=== PATIENT | female | born 1930 | race Caucasian/White ===

== ENCOUNTER 2017-01-30 15:05 | Outpatient (CLI) | payer MEDICARE, OTHER | END 2017-01-30 15:06 | disposition home or self-care (01) | DX: R41.2 Retrograde amnesia (principal); E78.2 Mixed hyperlipidemia ==

== ENCOUNTER 2017-01-30 18:39 | Outpatient (CLI) | payer MEDICARE, OTHER ==
[2017-01-30] MEDS ORDERED: IOPAMIDOL-300 100 ML VIAL IVP ONE (19:33)
== END 2017-01-30 18:40 | disposition home or self-care (01) ==
DX: R41.2 Retrograde amnesia (principal); E78.2 Mixed hyperlipidemia
CPT/HCPCS: 70460; 80053; 80061; 82607; 84443; 85651; 86780; Q9967

== ENCOUNTER 2017-05-14 16:28 | Emergency (ER) | payer MEDICARE, OTHER ==
--- NOTE | 2017-05-14 17:09 | ED Physician Documentation ---
PD HPI Fall - Stated complaint Stated Complaint: FALL HEAD INJ - Chief complaint Chief Complaint: Laceration - History obtained from History obtained from: Patient - History of Present Illness Mechanism of injury: Tripped Fall distance: Standing position Where injury occurred: Home Timing - onset: Today Injury(ies) location: Head Pain level max: 3 Pain level now: 0 Quality of pain: Pain Associated symptoms: No: LOC, AMS, Amnesia, Seizures, Ear drainage, Nasal drainage, Neck pain, Weakness, Paresthesias, Dyspnea, Nausea / vomiting, Hematemesis, Abdominal distension Symptoms improve with: Rest Worsens with: Movement Contributing factors: No: Anticoagulated, Intoxicated Recently seen: Not recently seen Review of Systems Constitutional: denies: Fever, Chills Throat: denies: Sore throat Cardiac: denies: Chest pain / pressure Respiratory: denies: Dyspnea, Cough GI: denies: Abdominal Pain, Nausea, Vomiting, Diarrhea Musculoskeletal: denies: Neck pain, Back pain Neurologic: denies: Focal weakness, Numbness, LOC PD PAST MEDICAL HISTORY - Past Medical History Past Medical History: No HEENT: Chronic hearing loss - Social History Does the pt smoke?: No Smoking Status: Never smoker PD ED PE NORMAL - Vitals Vital signs reviewed: Yes - General General: Alert and oriented X 3, No acute distress, Well developed/nourished - HEENT HEENT: PERRL, EOMI, Ears normal, Moist mucous membranes, Pharynx benign, Other ( 3cm, curved laceration to the superior aspect of the forehead, L side. 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 Mild left frontal scalp hematoma and soft tissue swelling or soft tissue gas consistent with laceration.) cervical spine CT Radiology: Prelim report reviewed, EMP read contemporaneously, See rad report ( Diffuse degenerative disc disease most severe at C4-C5, C5-C6 and C6-C7 levels. Diffuse facet arthropathy. No acute fracture. No Prevertebral soft tissue hematoma.) PD MEDICAL DECISION MAKING - ED course Complexity details: reviewed results, re-evaluated patient, considered differential, d/w patient ED course: Patient is an 87-year-old female who presents to the emergency department after a fall today. No acute findings on head CT or cervical spine CT. She does have a forehead laceration and this was repaired by Dr. Irwin. Please see his note for repair details. On evaluation after cleaning the wound, the wound appears to be approximately 4 cm in length. Warnings of infection and instructions on wound care given at bedside. Also counseled on how to minimize scarring. Patient counseled regarding signs and symptoms for which I believe and urgent re-evaluation would be necessary. Patient with good understanding of and agreement to plan and is comfortable going home at this time This document was made in part using voice recognition software. While efforts are made to proofread this document, sound alike and grammatical errors may occur. No evidence of syncope. No evidence of altered mental status. Normal neurological exam. Neck pain resolved on palpation on serial exam. Departure - Departure Disposition: 01 Home, Self Care Clinical Impression: Scalp laceration Qualifiers: Encounter type: initial encounter Qualified Code(s): S01.01XA - Laceration without foreign body of scalp, initial encounter Head injury Qualifiers: Encounter type: initial encounter Qualified Code(s): S09.90XA - Unspecified injury of head, initial encounter Condition: Good Instructions: ED Head Injury Closed, ED Laceration All Follow-Up: Jesus Manjarrez MD [Primary Care Provider] - Within 1 week (suture removal in 7 days ) Comments: Follow up with your doctor in 1 week for suture removal. Your CT scans are normal today. Discharge Date/Time: 05/14/17 20:32
[2017-05-14] MEDS ORDERED: LIDOCAINE 1% 2 ML VIAL ONE (18:43)
--- NOTE | 2017-05-14 19:53 | ED Physician Documentation ---
History of Present Illness - Stated complaint Stated Complaint: FALL HEAD INJ - Chief complaint Chief Complaint: Laceration - History obtained from History obtained from: Patient - History of Present Illness Timing: Today - Additonal information Additional information: fell today lacerating her forehead. Asked by Pollo to suture forehead. Patient appears to be tolerating the laceration well. PD PAST MEDICAL HISTORY - Past Medical History Past Medical History: No HEENT: Chronic hearing loss - Social History Does the pt smoke?: No Smoking Status: Never smoker Results - Vitals Vitals: Vital Signs - 24 hr 05/14/17 16:50 Temperature 35.9 C L Heart Rate 58 L Respiratory 18 Rate O2 Saturation 97 Oxygen O2 Source Room air Procedures - Laceration (location) forehead Length in cm: 4 Wound type: Curved, Flap Neurovascular status: Sensory intact, Motor intact, Vascular intact Anesthesia: Lidocaine 1% Wound Preparation: Hibiclens, Irrigated copiously NS, Wound explored, To the base Skin layer closure: Nylon, Interrupted, Size #-0 - enter number (5-0) Other: Patient tolerated well, No complications, Neurovascular intact Complexity: Simple PD MEDICAL DECISION MAKING - ED course Complexity details: d/w patient ED course: 87 y/o female with forehead laceration sutured. Remainder of visit per Dr. Abad.
--- NOTE | 2017-05-14 20:06 | CT Preliminary Report ---
Exam: CT Head W/O IMPRESSION: 1. Generalized age-related cortical atrophic changes without evidence of acute intracranial abnormali ty. 2. Mild left frontal scalp hematoma and soft tissue swelling with soft tissue gas consistent with lac eration. [facility] SITE ID: [id number]
--- NOTE | 2017-05-14 20:09 | CT Report ---
EXAM: CT HEAD EXAM DATE: 05/14/2017 07:33 PM. CLINICAL HISTORY: Fall, head and neck injury. COMPARISON: Head CT 01/30/2017. TECHNIQUE: Multiaxial CT images were obtained from the foramen magnum to the vertex. IV contrast: Non e. Reformats: Coronal. In accordance with CT protocol optimization, one or more of the following dose reduction techniques w ere utilized for this exam: automated exposure control, adjustment of mA and/or KV based on patient s ize, or use of iterative reconstructive technique. FINDINGS: Parenchyma: No intraparenchymal hemorrhage. No evidence of mass, midline shift, or CT findings of acu te infarction. Harris-white differentiation is distinct. Extraaxial Spaces: Normal for age. No subdural or epidural collections identified. Ventricles: The ventricles and cortical sulci are enlarged, consistent with age-related tissue loss. Sinuses: Imaged paranasal sinuses, orbits, and mastoids show no significant abnormality. Bones: No evidence of fracture or calvarial defect. 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 Mild left frontal scalp hematoma and soft tissue swelling with soft tissue gas consistent with lacera tion. IMPRESSION: 1. Generalized age-related cortical atrophic changes without evidence of acute intracranial abnormali ty. 2. Mild left frontal scalp hematoma and soft tissue swelling with soft tissue gas consistent with lac eration. [facility] Referring Provider Line: [phone] SITE ID: [id number]
--- NOTE | 2017-05-14 20:10 | CT Preliminary Report ---
Exam: CT Cervical Spine W/O IMPRESSION: 1. Diffuse degenerative disk disease most severe at the C4-C5, C5-C6 and C6-C7 levels. Diffuse facet arthropathy. 2. No acute fracture. No prevertebral soft tissue hematoma. [facility] SITE ID: [id number]
--- NOTE | 2017-05-14 20:18 | CT Report ---
EXAM: CT CERVICAL SPINE WITHOUT CONTRAST DATE: 05/14/2017 07:24 PM HISTORY: Fall, head injury. COMPARISONS: None. TECHNIQUE: Thin-section axial images were acquired of the cervical spine without contrast. Post-proce ssing: Coronal and sagittal reformats. Other: None. In accordance with CT protocol optimization, one or more of the following dose reduction techniques w ere utilized for this exam: automated exposure control, adjustment of mA and/or KV based on patient s ize, or use of iterative reconstructive technique. FINDINGS: Alignment: No scoliosis. 2 mm of C3 on C4 and 2 mm of C7 on T1 anterolisthesis likely degenerative in origin. Bones: No fracture or bone lesion. Interspace Levels/Facets: Marked C4-C5, C5-C6, and C6-C7 degenerative disk disease with prominent dis k osteophyte complexes. Mild C3-C4 and C7-T1 degenerative disk disease is noted. Near complete fusion of the left C4-C5 facet joint. There is diffuse degenerative facet arthropathy throughout the cervic al spine. Musculature: Normal. No fatty atrophy. Other: The paravertebral and prevertebral soft tissues are normal. The lung apices are clear. Atherom atous plaques are present in both carotid bulbs. IMPRESSION: 1. Diffuse degenerative disk disease most severe at the C4-C5, C5-C6, and C6-C7 levels. Diffuse facet arthropathy. 2. No acute fracture. No prevertebral soft tissue hematoma. [facility] Referring Provider Line: [phone] SITE ID: [id number]
[2017-05-14 20:20] VITALS: BP 172/64
== END 2017-05-14 20:32 | disposition home or self-care (01) ==
LOC: ED 16:28
DX: S01.81XA Laceration without foreign body of other part of head, initial encounter (principal); W01.0XXA Fall on same level from slipping, tripping and stumbling without subsequent striking against object, initial encounter; Y92.009 Unspecified place in unspecified non-institutional (private) residence as the place of occurrence of the external cause
CPT/HCPCS: 12013; 70450; 72125; 99283